=== PATIENT | female | born 1970 | race Caucasian/White ===

== ENCOUNTER 2018-12-03 08:35 | Day surgery (SDC) | payer OTHER ==
[2018-11-29 14:04] VITALS: BMI 32.4
[~2018-12-03 08:35] MED LIST: BUPIVACAINE HCL/PF 2.5 MG/ML - 30 ML VIAL IJ ONE
[2018-12-03] MEDS ORDERED: BUPIVACAINE HCL/PF 2.5 MG/ML - 30 ML VIAL IJ ONE ×2 (11:24→12:12)
[2018-12-03] MEDS ORDERED: MIDAZOLAM HCL 2 MG/2 ML SINGLE DOSE VIAL ONE (11:34)
[2018-12-03] MEDS ORDERED: oxyCODONE HCL 5 MG TABLET PO PRN ×2 (12:11)
[2018-12-03] MEDS ORDERED: ONDANSETRON 4 MG/2 ML VIAL IVPUSH PRN (12:11)
[2018-12-03] MEDS ORDERED: LACTATED RINGERS SOLUTION 1,000 ML IV SCH (12:15)
[2018-12-03] MEDS ORDERED: ONDANSETRON 4 MG/2 ML VIAL ONE (12:31)
--- NOTE | 2018-12-03 12:48 | OP ---
DATE OF OPERATION: 12/03/2018 Done at [facility] SURGEON: Adams Cuellar MD HEAD COUNSELOR: LAYNE Chavez PREOPERATIVE DIAGNOSES: 1. Right knee medial and lateral meniscal tear. 2. Right knee cartilage injury. 3. Right knee synovitis. POSTOPERATIVE DIAGNOSES: 1. Right knee medial and lateral meniscal tear. 2. Right knee cartilage injury. 3. Right knee synovitis. PROCEDURE: 1. Right knee arthroscopy, partial meniscectomy medial and lateral meniscus, CPT code 32432. 2. Right knee arthroscopy with chondroplasty and abrasion-plasty, CPT code 34466. 3. Right knee arthroscopy with synovectomy, CPT code 41131. FINDINGS: 1. Medial meniscus posterior horn tear. 2. Lateral meniscus posterior horn and central body tear. 3. Synovitis patellofemoral medial and lateral notch area. 4. Anterior grade 2 cartilage injury medial femoral condyle. 5. ACL and PCL intact. 6. 5 cm x 2 cm anterior medial femoral condyle central grade 4 changes with 2-3 changes along the periphery. 7. Central grade 2-4 changes 75% patella with 6 cm x 1 cm grade 2-4 changes patellofemoral trochlea. PROCEDURE: Informed consent was obtained. The patient came to the operating room, where the lower extremity was prepped and draped in a sterile fashion. A tourniquet was placed on the upper thigh, but not inflated. Using standard arthroscopic technique, a lateral incision and portal was made to allow for introduction of the camera into the suprapatellar bursa. This was then taken to the medial joint line, where under direct visualization, a medial incision and portal was made. Excessive synovium noted in the medial, lateral and patellofemoral and notch area was removed by an upbiter, shaver and Bovie cautery. This was found to bring in inflammatory tissue into the joint surface, a source of pain and dysfunction. Probing of the medial and lateral meniscus found tears, as described in the findings. These were removed with the upbiter and shaver and taken back to a stable rim. Grade 2 to 3 degenerative changes were treated with a chondroplasty, removing all flaking surfaces with low-setting Bovie along the periphery to prevent further flaking. Grade 4 changes, as noted, were treated with an abrasoplasty, creating a bleeding surface at the bone/cartilage interface. Aggressive debridement with shaver/nabil created bleeding surface. Micro fracture also done when indicated in findings. All areas of the knee were once again reexamined. The knee was then drained and a single suture was placed in all portals. A sterile dressing was placed and the patient was transferred to the recovery room without complication. The PA listed above was present and assisted at surgery. Their presence was absolutely medically necessary for the completion of the procedure. They helped hold the arthroscopy, pass instruments (and implants when indicated) and the procedure could not have been completed without their assistance. ADAMS CUELLAR M.D. [id number]
[2018-12-03 13:48] VITALS: TEMP 98.6
[2018-12-03 15:29] VITALS: BP 113/75; PULSE 80
--- NOTE | 2018-12-08 14:59 | PATH ---
Surgical Pathology Report Patient Name: LANDON COLON [facility]. Rec. #: [id number] /Age/Gender: 1970 (Age: 48) / F Account: [id number] Location: [facility] AMBULATORY Taken: 12/03/2018 Received: 12/03/2018 Reported: 12/08/2018 Physicians: Adams Preciado M.D. Specimen(s) Received RIGHT KNEE SHAVINGS Clinical History Right knee internal derangement Final Diagnosis KNEE, RIGHT, ARTHROSCOPIC SHAVINGS: FIBROSYNOVIAL TISSUE AND CARTILAGE. Electronically Signed Dina Caban M.D. Gross Description Received in formalin labeled "right knee shavings," are multiple fragments of white soft tissue measuring 2.0 x 2.0 x 0.3 cm in aggregate. The formalin is filtered and international representative portions are submitted in one cassette. LORE/12/06/2018 yuri/12/06/2018
== END 2018-12-03 14:45 | disposition home or self-care (01) ==
LOC: FASU 08:35
PROVIDERS: ATTEND Orthopaedic Surgery
PROC: 0SBC4ZZ Excision of Right Knee Joint, Percutaneous Endoscopic Approach (ICD-10-PCS; 2018-12-03)
PROC: 0SBC4ZZ Excision of Right Knee Joint, Percutaneous Endoscopic Approach (ICD-10-PCS; 2018-12-03)
PROC: 0SBC4ZZ Excision of Right Knee Joint, Percutaneous Endoscopic Approach (ICD-10-PCS; principal; 2018-12-03 10:00)
DX: S83.241A Other tear of medial meniscus, current injury, right knee, initial encounter (principal); S83.281A Other tear of lateral meniscus, current injury, right knee, initial encounter; S83.8X1A Sprain of other specified parts of right knee, initial encounter; M65.861 Other synovitis and tenosynovitis, right lower leg; X58.XXXA Exposure to other specified factors, initial encounter; Y93.9 Activity, unspecified; Y92.9 Unspecified place or not applicable
CPT/HCPCS: 82962; 84703; 88304-TC; 94760